=== PATIENT | male | born 1945 | race Caucasian/White ===

== ENCOUNTER 2019-01-07 18:42 | Emergency (ER) | payer MEDICARE ==
[2019-01-07] MEDS ORDERED: HYDROCODONE/ACETAMINOPHEN 5-325 MG TABLET PO ONE (20:10)
--- NOTE | 2019-01-07 20:13 | ER Document Report ---
ED Medical Screen (RME) - General Chief Complaint: Fall Injury Stated Complaint: FALL/BACK PAIN Time Seen by Provider: 01/07/19 20:03 Primary Care Provider: MASOUD TRISTAN MD [Primary Care Provider] - Follow up as needed Notes: Patient is a 73-year-old male presents to the emergency department with a chief complaint of right posterior rib pain and right flank pain. Patient states that around 6 PM tonight he was walking down his wooden deck steps when he slipped and fell backwards. Patient states that at that time he developed the right flank and right posterior rib pain. Patient states is worse with deep breath and with movement. Patient denies use of blood thinners. Patient states he did not hit his head or neck. Patient denies loss of consciousness. Patient reports last week he was repetitively lifting 80 pound bags of concrete when he developed a pain to his left elbow. Patient states a few days afterward he did have swelling to the elbow and redness. Patient states he did feel a warmth to the area. Patient denies loss of bowel or bladder. Patient denies numbness or tingling to lower extremities. - Related Data Allergies/Adverse Reactions: No Known Allergies Allergy (Verified 01/07/19 18:43) Past Medical History - Social History Chew tobacco use (# tins/day): No Frequency of alcohol use: Occasional Drug Abuse: None - Past Medical History Cardiac Medical History: Reports: Hx Hypertension - CONTROLLED WITH MEDICATION Denies: Hx Coronary Artery Disease, Hx Heart Attack Pulmonary Medical History: Denies: Hx Asthma, Hx Bronchitis, Hx COPD, Hx Pneumonia, Hx Tuberculosis Neurological Medical History: Denies: Hx Cerebrovascular Accident, Hx Seizures Renal/ Medical History: Reports: Hx Kidney Stones Musculoskeltal Medical History: Denies Hx Arthritis - Immunizations Hx Diphtheria, Pertussis, Tetanus Vaccination: Yes - <5 years Physical Exam - Vital signs Vitals: Temp Pulse Resp BP Pulse Ox 98.1 F 73 16 157/62 H 95 01/07/19 18:52 01/07/19 18:52 01/07/19 18:52 01/07/19 18:52 01/07/19 18:52 Interpretation: Hypertensive - Back Notes: There is no cervical, thoracic, lumbar midline tenderness with palpation. Patient does have an abrasion and some ecchymosis to the right posterior ribs and right flank area. Right posterior and right lateral ribs are tender to touch. There is no crepitus or subcutaneous emphysema palpated. - Extremities Notes: There is soft tissue swelling noted to the left elbow. Patient is able to activ maverick move his left elbow at the joint and a full range of motion but with pain. Course - Re-evaluation Re-evalutation: 01/07/19 20:13 I have greeted and performed a rapid initial assessment of this patient. A comprehensive ED assessment and evaluation of the patient, analysis of test results and completion of the medical decision making process will be conducted by additional ED providers. - Vital Signs Vital signs: Temp Pulse Resp BP Pulse Ox 98.1 F 73 16 157/62 H 95 01/07/19 18:52 01/07/19 18:52 01/07/19 18:52 01/07/19 18:52 01/07/19 18:52 Doctor's Discharge - Discharge Referrals: MASOUD TRISTAN MD [Primary Care Provider] - Follow up as needed
--- NOTE | 2019-01-07 20:50 | RADIOLOGY REPORT (SQ) ---
EXAM DESCRIPTION: [facility]: XR RIBS UNILATERAL WITH CHEST Views: 3, AP chest and 2 views of right ribs. CLINICAL HISTORY: 73 years Male, fall, right posterior rib pain COMPARISON: None. FINDINGS: Chest single view: Lungs are clear, with no focal infiltrate, pneumothorax, or pleural effusion. Mediastinum is within normal limits for this positioning. Ribs: Visualized ribs are intact, with no displaced fractures. No suspicious lytic or blastic rib lesions. No subpleural thickening. IMPRESSION: 1. No acute findings.
--- NOTE | 2019-01-07 20:51 | RADIOLOGY REPORT (SQ) ---
EXAM DESCRIPTION: [facility]: XR ELBOW 1-2 VIEWS Views: 3 CLINICAL HISTORY: 73 years Male, left elbow swelling, injury last week lifting COMPARISON: None. FINDINGS: Negative for acute fracture, dislocation, or radiopaque foreign body. No joint effusion. There is diffuse soft tissue edema posterior to the elbow and distal humerus. No soft tissue air. Chronic enthesopathic changes are noted at the medial and lateral humeral epicondyles. IMPRESSION: 1. Posterior soft tissue edema. 2. No acute fracture.
[2019-01-07] MEDS ORDERED: CLINDAMYCIN HCL 150 MG CAPSULE PO ONE (22:28)
[2019-01-07] MEDS ORDERED: HYDROCODONE/ACETAMINOPHEN 5-325 MG (6 TAB/ER DISP) PO PRN (22:36)
[2019-01-07 22:49] VITALS: BP 149/72
--- NOTE | 2019-01-08 05:35 | ER Document Report ---
Entered by NIA LANG SCRIBE 01/07/19 [id number] Acting as scribe for:DEIRDRE COX DO ED Fall - General Chief Complaint: Fall Injury Stated Complaint: FALL/BACK PAIN Time Seen by Provider: 01/07/19 20:03 Primary Care Provider: DAVIS PRIEST JR, DO [ACTIVE PROVISIONAL STAFF] - 01/09/19 Mode of Arrival: Ambulatory Information source: Patient Notes: Patient is a 73 year old male that presents to the emergency department today with complaints of right sided lower back pain resulting from a fall that occurred yesterday. Patient states he "slipped down the steps" yesterday. Patient also mentions left elbow pain which he has had for the last week. Patient states he has had redness and warmth in this left elbow as well for a we ek. Patient states his tetanus status is up to date. - Related data Allergies/Adverse Reactions: No Known Allergies Allergy (Verified 01/07/19 18:43) Past Medical History - General Information source: Patient - Social History Smoking Status: Former Smoker Cigarette use (# per day): No Chew tobacco use (# tins/day): No Frequency of alcohol use: Occasional Drug Abuse: None Lives with: Family Family History: Reviewed & Not Pertinent Patient has suicidal ideation: No Patient has homicidal ideation: No - Past Medical History Cardiac Medical History: Reports: Hx Hypertension - CONTROLLED WITH MEDICATION Renal/ Medical History: Reports: Hx Kidney Stones Past Surgical History: Reports: Hx Orthopedic Surgery - Immunizations Hx Diphtheria, Pertussis, Tetanus Vaccination: Yes - <5 years Review of Systems - Review of Systems Constitutional: No symptoms reported EENT: No symptoms reported Cardiovascular: No symptoms reported Respiratory: No symptoms reported Gastrointestinal: No symptoms reported Genitourinary: No symptoms reported Male Genitourinary: No symptoms reported Musculoskeletal: See HPI, Back pain, Joint pain - left elbow Skin: No symptoms reported Hematologic/Lymphatic: No symptoms reported Neurological/Psychological: No symptoms reported -: Yes All other systems reviewed and negative Physical Exam - Vital signs Vitals: Temp Pulse Resp BP Pulse Ox 98.1 F 73 16 157/62 H 95 01/07/19 18:52 01/07/19 18:52 01/07/19 18:52 01/07/19 18:52 01/07/19 18:52 Interpretation: Normal - General General appearance: Appears well, Alert - HEENT Head: Normocephalic, Atraumatic Eyes: Normal Pupils: PERRL - Respiratory Respiratory status: No respiratory distress Chest status: Tender - Tender over right lower posterior chest wall Breath sounds: Normal Chest palpation: Normal - Cardiovascular Rhythm: Regular Heart sounds: Normal auscultation Murmur: No - Abdominal Inspection: Normal Distension: No distension Bowel sounds: Normal Tenderness: Nontender Organomegaly: No organomegaly - Back Back: Normal, Nontender - Extremities General upper extremity: Tender, Normal ROM General lower extremity: Normal inspection, Nontender, Normal color, Normal ROM, Normal temperature, Normal weight bearing. No: Chris's sign Elbow: Tender, Swollen bursa - Abrasion over bursa with swelling and erythema. Full range of motion of joint - Neurological Neuro grossly intact: Yes Cognition: Normal Orientation: AAOx4 Tamra Coma Scale Eye Opening: Spontaneous [place] Coma Scale Verbal: Oriented [place] Coma Scale Motor: Obeys Commands Tam[place] Coma Scale Total: 15 Speech: Normal Motor strength normal: LUE, RUE, LLE, RLE Sensory: Normal - Psychological Associated symptoms: Normal affect, Normal mood - Skin Skin Temperature: Warm Skin Moisture: Dry Skin Color: Normal Course - Re-evaluation Re-evalutation: 01/08/19 05:34 Patient is a 73-year-old male who comes in after a fall. Complaining of rib pain on the right. Patient with infective bursitis on the left. Full range of motion of the joint and no evidence for septic arthritis. Patient has abrasion over the area which is likely source. His tetanus shot is up-to-date. He will be discharged home with clindamycin and is to follow-up with orthopedics this week. Understands agrees with plan. Stable for discharge. - Vital Signs Vital signs: Temp Pulse Resp BP Pulse Ox 98.0 F 62 18 149/72 H 94 01/07/19 22:47 01/07/19 22:47 01/07/19 22:47 01/07/19 22:47 01/07/19 22:47 - Diagnostic Test Radiology reviewed: Reports reviewed Discharge - Discharge Clinical Impression: Other infective bursitis, left elbow Rib contusion Qualifiers: Encounter type: initial encounter Laterality: right Qualified Code(s): S20.211A - Contusion of right front wall of thorax, initial encounter Condition: Stable Disposition: HOME, SELF-CARE Instructions: Olecranon Bursitis ([facility]), Rib Contusion ([facility]), Rib Injuries and Fractures ([facility]) Additional Instructions: Please follow-up with your primary care doctor and your orthopedic doctor this week. Prescriptions: Hydrocodone/Acetaminophen [[place] 5-325 mg Tablet] 1 tab PO Q6HP PRN #12 tablet PRN Reason: Clindamycin HCl 300 mg PO TID #30 capsule Referrals: DAVIS PRIEST JR, DO [ACTIVE PROVISIONAL STAFF] - 01/09/19 I personally performed the services described in the documentation, reviewed and edited the documentation which was dictated to the scribe in my presence, and it accurately records my words and actions.
== END 2019-01-07 22:57 | disposition home or self-care (01) ==
LOC: ER 18:42
DX: S20.211A Contusion of right front wall of thorax, initial encounter (principal); M54.5 Low back pain; W10.9XXA Fall (on) (from) unspecified stairs and steps, initial encounter; M71.122 Other infective bursitis, left elbow; S50.319A Abrasion of unspecified elbow, initial encounter; X58.XXXA Exposure to other specified factors, initial encounter; M25.522 Pain in left elbow; I10 Essential (primary) hypertension; Z87.891 Personal history of nicotine dependence
CPT/HCPCS: 99283; 73070; 71101; A9270 ×3

== ENCOUNTER 2019-07-20 14:14 | Emergency (ER) | payer MEDICARE ==
[2019-07-20] MEDS ORDERED: DIPH/PERTUSS(ACELL)/TETANUS VAC/PF 0.5 ML SYR (>=10YO) IM ONE (14:57)
--- NOTE | 2019-07-20 15:03 | ER Document Report ---
HPI - HPI Patient complains to provider of: Laceration to left hand Time Seen by Provider: 07/20/19 14:57 Onset: Just prior to arrival Onset/Duration: Sudden Pain Level: 3 Context: Laceration to left hand with a razor knife just prior to arrival the razor knife was clean fresh and sharp. Does not know his last tetanus status bleeding is controlled at this point in time. Associated Symptoms: None Exacerbated by: Denies Similar symptoms previously: No Recently seen / treated by doctor: No Past Medical History - General Information source: Patient - Social History Smoking Status: Never Smoker Frequency of alcohol use: Occasional Drug Abuse: None Family History: Reviewed & Not Pertinent Patient has suicidal ideation: No Patient has homicidal ideation: No - Past Medical History Cardiac Medical History: Reports: Hx Hypertension - CONTROLLED WITH MEDICATION Denies: Hx Coronary Artery Disease, Hx Heart Attack Pulmonary Medical History: Denies: Hx Asthma, Hx Bronchitis, Hx COPD, Hx Pneumonia, Hx Tuberculosis Neurological Medical History: Denies: Hx Cerebrovascular Accident, Hx Seizures Renal/ Medical History: Reports: Hx Kidney Stones Musculoskeletal Medical History: Denies Hx Arthritis Past Surgical History: Reports: Hx Orthopedic Surgery - Immunizations Hx Diphtheria, Pertussis, Tetanus Vaccination: Yes - <5 years Vertical Provider Document - CONSTITUTIONAL Agree With Documented VS: Yes - INFECTION CONTROL TRAVEL OUTSIDE OF THE [place] IN LAST 30 DAYS: No Course - Vital Signs Vital signs: Temp Pulse Resp BP Pulse Ox 98.5 F 87 16 153/79 H 95 07/20/19 14:23 07/20/19 14:23 07/20/19 14:23 07/20/19 14:23 07/20/19 14:23 Procedures - Laceration/Wound Repair Left Head Thumb Wound length (cm): 3 Wound's Depth, Shape: Superficial Wound explored: Clean Irrigated w/ Saline (mLs): 3 Wound Debrided: Minimal Wound Repaired With: [place] Closure?: Yes Post-procedure wound care: Sterile dressing applied Post-procedure NV exam normal: Yes Complications: No Discharge - Discharge Clinical Impression: Laceration Condition: Fair Disposition: HOME, SELF-CARE Instructions: Laceration Care ([facility]), Soap Cleansing ([facility]), Tetanus Immunization Given (ON LICENSE OF [facility]) Referrals: MASOUD TRISTAN MD [Primary Care Provider] - Follow up as needed
[2019-07-20 15:37] VITALS: BP 147/67
== END 2019-07-20 16:08 | disposition home or self-care (01) ==
LOC: ER 14:14
PROC: 0HQGXZZ Repair Left Hand Skin, External Approach (ICD-10-PCS; principal; 2019-07-20)
DX: S61.412A Laceration without foreign body of left hand, initial encounter (principal); M79.642 Pain in left hand; W26.0XXA Contact with knife, initial encounter; I10 Essential (primary) hypertension; Z79.899 Other long term (current) drug therapy
CPT/HCPCS: 90471; 90715; 99282